=== PATIENT | male | born 1955 | race Caucasian/White ===

== ENCOUNTER 2017-02-12 13:29 | Emergency (ER) | payer SELFPAY ==
[~2017-02-12] VITALS: Ht 180.3 cm; Wt 86.2 kg
[2017-02-12 13:35] VITALS: BP 144/89
[2017-02-12] MEDS ORDERED: INVO100T PO (13:39)
[2017-02-12] MEDS ORDERED: ATOR1TAB18 (13:39)
[2017-02-12] MEDS ORDERED: METF1000 PO (13:39)
[2017-02-12] MEDS ORDERED: LIDOCAINE 2% 5ML JELLY UROJET TOP ONE (14:15)
[2017-02-12 14:31] LABS: BASO # 0.1 K/mm3 (0.0-0.2); BASO % 0.4 % (0.0-1.0); EOS % 0.2 % (0.0-3.0); LARGE UNSTAINED CELL # 0.2 K/mm3 (0.0-0.4); LARGE UNSTAINED CELL % 1.4 % (0.0-4.0); LYMPH # 1.3 K/mm3 (1.5-4.5); LYMPH % 8.2 % (24.0-44.0); MEAN CORPUSCULAR HGB CONC 35.8 g/dl (32.0-36.5); MEAN CORPUSCULAR VOLUME 86.5 fl (80.0-96.0); MONO % 6.3 % (0.0-5.0); NEUTROPHILS # 13.7 K/mm3 (1.8-7.7); NEUTROPHILS % 83.5 % (36.0-66.0); PLATELET COUNT, AUTOMATED 243 k/mm3 (150-450); RED CELL DISTRIBUTION WIDTH 12.3 % (11.5-14.5); WHITE BLOOD COUNT 16.4 K/mm3 (4.0-10.0)
[2017-02-12 14:48] LABS: CALCIUM LEVEL 9.5 MG/DL (8.8-10.2); CREATININE FOR GFR 1.58 MG/DL (0.70-1.30); GLOMERULAR FILTRATION RATE 47.4 (>49); POTASSIUM SERUM 3.2 MEQ/L (3.5-5.1)
[2017-02-12] MEDS ORDERED: FLOM5CAP PO (16:35)
[2017-02-13] MEDS ORDERED: CIPR500T89 PO (21:53)
--- NOTE | 2017-02-14 07:16 | ED PDOC ---
Post-Departure Follow-Up radiology rpeort faxed to Tawanda Cagle Sarah MD Feb 14, 2017 07:16
== END 2017-02-12 16:49 | disposition home or self-care (01) ==
LOC: M ED 14:24
DX: R33.9 Retention of urine, unspecified (principal); N40.1 Benign prostatic hyperplasia with lower urinary tract symptoms; I10 Essential (primary) hypertension; E11.9 Type 2 diabetes mellitus without complications; E78.9 Disorder of lipoprotein metabolism, unspecified; F17.210 Nicotine dependence, cigarettes, uncomplicated; Z79.899 Other long term (current) drug therapy; Z79.84 Long term (current) use of oral hypoglycemic drugs

== ENCOUNTER 2017-02-13 11:43 | Emergency (ER) | payer SELFPAY ==
[~2017-02-13] VITALS: Ht 180.3 cm; Wt 98.5 kg
[~2017-02-13 11:43] MED LIST: ATOR1TAB18; FLOM5CAP PO; INVO100T PO; METF1000 PO
[2017-02-13 12:53] VITALS: BP 127/78
[2017-02-13] MEDS ORDERED: CIPR500T89 PO (21:53)
== END 2017-02-13 13:05 | disposition home or self-care (01) ==
LOC: M ED 13:05
DX: T83.89XA Other specified complication of genitourinary prosthetic devices, implants and grafts, initial encounter (principal); R33.9 Retention of urine, unspecified; N40.0 Benign prostatic hyperplasia without lower urinary tract symptoms; X58.XXXA Exposure to other specified factors, initial encounter; Y92.89 Other specified places as the place of occurrence of the external cause; I10 Essential (primary) hypertension; E11.9 Type 2 diabetes mellitus without complications; E78.9 Disorder of lipoprotein metabolism, unspecified; F17.210 Nicotine dependence, cigarettes, uncomplicated; Z79.899 Other long term (current) drug therapy; Z79.2 Long term (current) use of antibiotics; Z79.84 Long term (current) use of oral hypoglycemic drugs

== ENCOUNTER 2017-02-13 18:37 | Emergency (ER) | payer SELFPAY ==
[~2017-02-13] VITALS: Ht 180.3 cm; Wt 98.4 kg
[2017-02-13 20:22] LABS: BASO # 0.1 K/mm3 (0.0-0.2); BASO % 0.5 % (0.0-1.0); EOS # 0.2 K/mm3 (0.0-0.50); EOS % 1.1 % (0.0-3.0); LARGE UNSTAINED CELL # 0.2 K/mm3 (0.0-0.4); LARGE UNSTAINED CELL % 1.2 % (0.0-4.0); LYMPH # 2.5 K/mm3 (1.5-4.5); LYMPH % 18.3 % (24.0-44.0); MEAN CORPUSCULAR HEMOGLOBIN 30.5 pg (27.0-33.0); MONO # 0.8 K/mm3 (0.0-0.8); MONO % 6.2 % (0.0-5.0); NEUTROPHILS # 9.3 K/mm3 (1.8-7.7); NEUTROPHILS % 72.6 % (36.0-66.0); PLATELET COUNT, AUTOMATED 222 k/mm3 (150-450); RED CELL DISTRIBUTION WIDTH 12.7 % (11.5-14.5); WHITE BLOOD COUNT 12.9 K/mm3 (4.0-10.0)
[2017-02-13 20:50] LABS: ALBUMIN 3.6 GM/DL (3.2-5.2); ALBUMIN/GLOBULIN RATIO 1.06 (1.00-1.93); BILIRUBIN,TOTAL 0.5 MG/DL (0.2-1.0); CALCIUM LEVEL 8.8 MG/DL (8.8-10.2); CREATININE FOR GFR 1.44 MG/DL (0.70-1.30); GLOMERULAR FILTRATION RATE 52.7 (>49); POTASSIUM SERUM 3.6 MEQ/L (3.5-5.1)
[2017-02-13] MEDS ORDERED: cefTRIAXone SOD 1 GM in D5W MINI-BAG PLUS 50 ML IV ONE (21:00)
[2017-02-13] MEDS ORDERED: NS 500 ML IV ONE (21:00)
[2017-02-13] MEDS ORDERED: ACETAMINOPHEN 325 MG TAB PO ONE (21:15)
--- NOTE | 2017-02-13 21:30 | REPUSA ---
CT of the abdomen and pelvis without contrast Clinical statement: hematuria. Technique: Multiple axial CT images were obtained from the base of the lungs to the floor of the pelv is utilizing 5 mm axial slices without administration of contrast. Coronal and sagittal reconstructio ns were also obtained. Comparison: None. Findings: Chest: The visualized lung bases are clear. Abdomen: The kidneys are normal in size bilaterally. There is a 2 cm simple right renal cyst. There i s no evidence of hydronephrosis or nephrolithiasis. The liver, spleen, pancreas, gallbladder and adre nal glands are unremarkable. The aorta demonstrates normal caliber and contour. There is no abdominal lymphadenopathy or ascites. Pelvis: The bowel is unremarkable, with no obstructive or inflammatory changes. The urinary bladder i s catheterized and contracted, with severe circumferential bladder wall thickening. No kidney stones are seen within the urinary bladder. The prostate gland is severely and large, measuring 6.8 x 6.9 c m. Bones: There are no suspicious osseous abnormalities seen. There is mild degenerative disc disease at L4/L5. Impression: 1. Circumferential bladder wall thickening within a catheterized and bonny urinary bladder. Cys toscopy may be helpful for further evaluation. 2. No evidence of hydronephrosis or nephrolithiasis. Simple right renal cyst. 3. No obstructive or inflammatory bowel changes. 4. Enlarged prostate. 5. Mild spondylosis of the spine.
[2017-02-13] MEDS ORDERED: CIPR500T89 PO (21:53)
[2017-02-13] MEDS ORDERED: CIPROFLOXACIN 500 MG TAB PO ONE (22:00)
[2017-02-13 22:04] VITALS: BP 139/80
== END 2017-02-13 22:40 | disposition home or self-care (01) ==
LOC: M ED 20:18
DX: N41.0 Acute prostatitis (principal); N39.0 Urinary tract infection, site not specified; R31.9 Hematuria, unspecified; R50.9 Fever, unspecified; N40.1 Benign prostatic hyperplasia with lower urinary tract symptoms; M51.36 Other intervertebral disc degeneration, lumbar region; E11.9 Type 2 diabetes mellitus without complications; E78.00 Pure hypercholesterolemia, unspecified; Z96.0 Presence of urogenital implants; Z90.49 Acquired absence of other specified parts of digestive tract; Z79.899 Other long term (current) drug therapy
CPT/HCPCS: 74176; 80053; 81001; 83605; 85025; 87040; 87086; 96361; 96374; 99284; J0696

== ENCOUNTER 2017-02-20 07:09 | Emergency (ER) | payer SELFPAY ==
[~2017-02-20] VITALS: Ht 180.3 cm; Wt 93.4 kg
[~2017-02-20 07:09] MED LIST changes: +CIPR500T89 PO
[2017-02-20 08:17] VITALS: BP 161/88
[2017-02-21] MEDS ORDERED: BACT800T5 PO (12:34)
[2017-02-21] MEDS ORDERED: DETR1TAB4 PO (12:34)
[2017-03-01] MEDS ORDERED: TRES1INJ2 SC (13:43)
== END 2017-02-20 08:18 | disposition home or self-care (01) ==
LOC: M ED 07:50
DX: T83.091A Other mechanical complication of indwelling urethral catheter, initial encounter (principal); Y84.6 Urinary catheterization as the cause of abnormal reaction of the patient, or of later complication, without mention of misadventure at the time of the procedure; N40.1 Benign prostatic hyperplasia with lower urinary tract symptoms; R31.0 Gross hematuria; X58.XXXA Exposure to other specified factors, initial encounter; Y92.89 Other specified places as the place of occurrence of the external cause; E11.9 Type 2 diabetes mellitus without complications; F17.210 Nicotine dependence, cigarettes, uncomplicated; Z79.899 Other long term (current) drug therapy; Z79.84 Long term (current) use of oral hypoglycemic drugs

== ENCOUNTER 2017-02-21 10:13 | Emergency (ER) | payer SELFPAY ==
[~2017-02-21] VITALS: Ht 180.3 cm; Wt 93.4 kg
[2017-02-21] MEDS ORDERED: TOLTERODINE (DETROL) 2 MG TAB PO ONE (11:15)
[2017-02-21 11:42] LABS: ANION GAP 10 MEQ/L (8-16); BLOOD UREA NITROGEN 17 MG/DL (7-18); CALCIUM LEVEL 8.8 MG/DL (8.8-10.2); CARBON DIOXIDE LEVEL 27 MEQ/L (21-32); CHLORIDE LEVEL 102 MEQ/L (98-107); CREATININE FOR GFR 1.12 MG/DL (0.70-1.30); GLOMERULAR FILTRATION RATE > 60.0 (>49); GLUCOSE, FASTING 115 MG/DL (80-110); POTASSIUM SERUM 3.7 MEQ/L (3.5-5.1); SODIUM LEVEL 139 MEQ/L (136-145)
[2017-02-21 11:43] LABS: BASO # 0.1 K/mm3 (0.0-0.2); BASO % 0.6 % (0.0-1.0); EOS # 0.1 K/mm3 (0.0-0.50); EOS % 0.9 % (0.0-3.0); LARGE UNSTAINED CELL # 0.1 K/mm3 (0.0-0.4); LARGE UNSTAINED CELL % 1.2 % (0.0-4.0); LYMPH # 1.8 K/mm3 (1.5-4.5); LYMPH % 15.6 % (24.0-44.0); MEAN CORPUSCULAR HEMOGLOBIN 30.6 pg (27.0-33.0); MEAN CORPUSCULAR HGB CONC 35.9 g/dl (32.0-36.5); MEAN CORPUSCULAR VOLUME 85.3 fl (80.0-96.0); MONO # 0.6 K/mm3 (0.0-0.8); MONO % 5.9 % (0.0-5.0); NEUTROPHILS % 75.8 % (36.0-66.0); PLATELET COUNT, AUTOMATED 295 k/mm3 (150-450); RED CELL DISTRIBUTION WIDTH 12.6 % (11.5-14.5); WHITE BLOOD COUNT 10.6 K/mm3 (4.0-10.0)
[2017-02-21 11:50] LABS: YEAST LIKE CELL URINE AUTO LARGE
[2017-02-21] MEDS ORDERED: BACT800T5 PO (12:34)
[2017-02-21] MEDS ORDERED: DETR1TAB4 PO (12:34)
[2017-02-21] MEDS ORDERED: BACTRIM 160MG/800MG DS TAB PO ONE (12:45)
[2017-02-21 12:52] VITALS: BP 129/78
[2017-02-22] MEDS ORDERED: OMEP40CA2 PO (01:40)
[2017-02-22] MEDS ORDERED: LOSA100T37 PO (01:40)
[2017-02-22] MEDS ORDERED: DETR1TAB4 PO (04:07)
[2017-02-22] MEDS ORDERED: BACT800T5 PO (04:07)
[2017-02-22] MEDS ORDERED: FLOM5CAP PO (04:07)
[2017-02-22] MEDS ORDERED: NICO14PA TD (09:00)
[2017-03-01] MEDS ORDERED: TRES1INJ2 SC (13:43)
== END 2017-02-21 12:54 | disposition home or self-care (01) ==
LOC: M ED 10:47
DX: N30.01 Acute cystitis with hematuria (principal); N40.1 Benign prostatic hyperplasia with lower urinary tract symptoms; R33.9 Retention of urine, unspecified; E11.9 Type 2 diabetes mellitus without complications; E78.00 Pure hypercholesterolemia, unspecified; F17.200 Nicotine dependence, unspecified, uncomplicated; Z90.49 Acquired absence of other specified parts of digestive tract; Z96.0 Presence of urogenital implants; Z79.899 Other long term (current) drug therapy

== ENCOUNTER 2017-02-22 01:27 | Observation (INO) | payer SELFPAY ==
[~2017-02-22] VITALS: Ht 180.3 cm; Wt 95.5 kg
[~2017-02-22 01:27] MED LIST changes: +BACT800T5 PO; +DETR1TAB4 PO
[2017-02-22] MEDS ORDERED: LOSA100T37 PO (01:40)
[2017-02-22] MEDS ORDERED: OMEP40CA2 PO (01:40)
[2017-02-22] MEDS: LORazepam 2 MG TAB PO STA ×2 (03:24→03:34)
[2017-02-22] MEDS ORDERED: LIDOCAINE 2% 5ML JELLY UROJET TOP ONE (04:00)
[2017-02-22] MEDS ORDERED: DETR1TAB4 PO (04:07)
[2017-02-22] MEDS ORDERED: FLOM5CAP PO (04:07)
[2017-02-22] MEDS ORDERED: BACT800T5 PO (04:07)
[2017-02-22 04:53] LABS: BASO # 0.1 K/mm3 (0.0-0.2); BASO % 0.6 % (0.0-1.0); EOS # 0.3 K/mm3 (0.0-0.50); EOS % 2.5 % (0.0-3.0); LARGE UNSTAINED CELL # 0.1 K/mm3 (0.0-0.4); LYMPH # 2.1 K/mm3 (1.5-4.5); LYMPH % 19.7 % (24.0-44.0); MEAN CORPUSCULAR HGB CONC 34.8 g/dl (32.0-36.5); MEAN CORPUSCULAR VOLUME 86.1 fl (80.0-96.0); MONO # 0.7 K/mm3 (0.0-0.8); MONO % 6.7 % (0.0-5.0); NEUTROPHILS # 7.1 K/mm3 (1.8-7.7); NEUTROPHILS % 69.5 % (36.0-66.0); PLATELET COUNT, AUTOMATED 294 k/mm3 (150-450); RED CELL DISTRIBUTION WIDTH 12.6 % (11.5-14.5); WHITE BLOOD COUNT 10.3 K/mm3 (4.0-10.0)
[2017-02-22 05:13] LABS: INR 0.95
[2017-02-22 05:15] LABS: ANION GAP 7 MEQ/L (8-16); BLOOD UREA NITROGEN 23 MG/DL (7-18); CALCIUM LEVEL 8.8 MG/DL (8.8-10.2); CARBON DIOXIDE LEVEL 30 MEQ/L (21-32); CHLORIDE LEVEL 102 MEQ/L (98-107); CREATININE FOR GFR 1.27 MG/DL (0.70-1.30); GLOMERULAR FILTRATION RATE > 60.0 (>49); GLUCOSE, FASTING 176 MG/DL (80-110); POTASSIUM SERUM 3.5 MEQ/L (3.5-5.1); SODIUM LEVEL 139 MEQ/L (136-145)
[2017-02-22] MEDS ORDERED: NS 1,000 ML IV SCH (05:59)
[2017-02-22] MEDS ORDERED: ACETAMINOPHEN TAB 650MG DOSE (2X325MG) PO PRN (06:00)
[2017-02-22] MEDS ORDERED: MORPHINE 2 MG/ML 1ML SYRINGE IV PRN (06:00)
[2017-02-22] MEDS ORDERED: HEPARIN SOD (PORCINE) 5000 UNITS/ML VIAL SC SCH (06:00)
--- NOTE | 2017-02-22 06:20 | HPEPDOC ---
General Date of Admission Feb 22, 2017 at 06:02 Other Providers Unknown Attending Physician: CALEB MORRISON MD Chief Complaint The patient is a 62-year-old male admitted with a reason for visit of Obstruction Of Urinary Outflow. Source: Patient Exam Limitations: No limitations Timing/Duration: Day(s) (10) Severity: Moderate Associated Symptoms: Denies Symptoms History of Present Illness Courtney a 62-year-old male, history of hypertension, diabetes, presented with acute evidence enough urine and his back. He came to the emergency room 10 days back and was placed a Coe catheter and that is scheduled urology appointment as an outpatient Since then. His Coe has clogged multiple times and that he has visited the emergency room, 7 times IN PAST 10 days Home Medications Scheduled (Losartan Potassium/Hydroc 100-25 mg) 1 Tab Tab, 1 TAB PO DAILY, (Reported) Canagliflozin (Invokana) 100 Mg Tab, 100 MG PO DAILY, (Reported) Metformin Hydrochloride (Metformin HCl) 1,000 Mg Tab, 1,000 MG PO BID, (Reported ) Omeprazole (Omeprazole) 40 Mg Cap, 40 MG PO DAILY, (Reported) Tamsulosin Hydrochloride (Flomax) 0.4 Mg Cap, 0.4 MG PO DAILY, (Reported) Tolterodine Tartrate (Detrol) 2 Mg Tab, 2 MG PO Q12H, (Reported) Trimethoprim/Sulfamethoxazole (Bactrim Ds 800-160 mg) 1 Tab Tab, 1 TAB PO Q12H, (Reported) Allergies Coded Allergies: No Known Allergies (Unverified , 02/13/17) Past Medical History Medical History Diabetes mellitus, hypertensive Surgical History Laparotomy for foreign body Family History Significant Family History: No pertinent family hx Social History * Smoker: less than 1 pack/day Alcohol: Denies Drugs: denies Recent Travel/Sick Contacts: Denies: Recent travel, Recent sick contacts Review of Symptoms Constitutional: Denies: Chills, Fever, Night Sweats Eyes: Denies: Pain, Vision change ENT: Denies: Head Aches, Ear Pain, Dysphagia Skin: Denies: Rash, Lesions, Breakdown Pulmonary: Denies: Dyspnea, Cough Cardiovascular: Denies: Chest Pain, Palpitations, Orthopnea, Paroxysmal Noc. Dyspnea, Lt Headedness Gastrointestinal: Denies: Nausea, Vomiting, Abdominal Pain, Diarrhea Genitourinary: Reports: Dysuria, Retention, Denies: Frequency, Incontinence Hematologic: Denies: Bruising, Bleeding Excessively Musculoskeletal: Denies: Neck Pain, Back Pain, Joint Pain, Muscle Pain, Spasms Neurological: Denies: Weakness, Numbness, Change in speech, Confusion Psych: Reports: Mood Normal, Denies: Depression, Memory Issues Physical Examination General Exam: Positive: Alert, Moderate Distress Eye Exam: Positive: PERRLA, Conjunctiva & lids normal, EOMI, Negative: Sclera icteric ENT Exam: Positive: Atraumatic, Mucous membr. moist/pink, Pharynx Normal Neck Exam: Positive: Supple, Negative: JVD, thyromegaly Chest Exam: Positive: Clear to auscultation, Normal air movement Heart Exam: Positive: Rate Normal, Regular Rhythm, Normal S1, Normal S2, Negative: Murmurs, Rubs Telemetry: Positive: No significant arrhythmia Abdomen Exam: Positive: Normal bowel sounds, Soft, Negative: Tenderness, Hepatospenomegaly Extremity Exam: Positive: Normal pulses, Negative: Clubbing, Cyanosis, Edema Skin Exam: Positive: Nl turgor and temperature, Negative: Breakdown, Lesion Neuro Exam: Positive: Normal Gait, Normal Speech, Cranial Nerves 3-12 NL, Reflexes 2+ Psych Exam: Positive: Mental status NL, Mood NL, Oriented x 3 Other physical findings Coe catheter in place Vital Signs Vital Signs Date Time Temp Pulse Resp B/P (MAP) Pulse Ox O2 Delivery O2 Flow Rate FiO2 02/22/17 04:34 02/22/17 01:34 98.1 106 20 97 Room Air Laboratory Data Labs 24H Laboratory Tests 2 02/22/17 04:46: White Blood Count 10.3H, Red Blood Count 5.15, Hemoglobin 15.5, Hematocrit 44.3 , Mean Corpuscular Volume 86.1, Mean Corpuscular Hemoglobin 30.0, Mean Corpuscular Hemoglobin Concent 34.8, Red Cell Distribution Width 12.6, Platelet Count 294, Neutrophils (%) (Auto) 69.5H, Lymphocytes (%) (Auto) 19.7L, Monocytes (%) (Auto) 6.7H, Eosinophils (%) (Auto) 2.5, Basophils (%) (Auto) 0.6 , Neutrophils # (Auto) 7.1, Lymphocytes # (Auto) 2.1, Monocytes # (Auto) 0.7, Eosinophils # (Auto) 0.3, Basophils # (Auto) 0.1, Large Unclassified Cells % 1.0 , Large Unclassified Cells # 0.1, Prothrombin Time 12.8, Prothromb Time International Ratio 0.95, Activated Partial Thromboplast Time 32.6, Anion Gap 7L , Glomerular Filtration Rate > 60.0, Blood Urea Nitrogen 23H, Creatinine 1.27, Sodium Level 139, Potassium Level 3.5, Chloride Level 102, Carbon Dioxide Level 30, Calcium Level 8.8 CBC/BMP Laboratory Tests 02/22/17 04:46 Red Blood Count 5.15, Mean Corpuscular Volume 86.1, Mean Corpuscular Hemoglobin 30.0, Mean Corpuscular Hemoglobin Concent 34.8, Red Cell Distribution Width 12.6 , Neutrophils (%) (Auto) 69.5 H, Lymphocytes (%) (Auto) 19.7 L, Monocytes (%) ( Auto) 6.7 H, Eosinophils (%) (Auto) 2.5, Basophils (%) (Auto) 0.6, Neutrophils # (Auto) 7.1, Lymphocytes # (Auto) 2.1, Monocytes # (Auto) 0.7, Eosinophils # ( Auto) 0.3, Basophils # (Auto) 0.1, Calcium Level 8.8 Assessment/Plan 62-year-old old man, history of hypertension, diabetes, presented with urinary attendance and was placed. Coe. Coe and gets clogged multiple times Problems (1) Obstruction to urinary outflow Status: Acute Problem Text: We will get a urology consult. Continue Flomax. IV normal saline. Continue Coe catheter almost likely present, will go for urological interventions. Keep him nothing by mouth (2) Tobacco abuse Problem Text: Continue with nicotine patch (3) Diabetes mellitus type 2 in nonobese Problem Text: Continue with Levemir and sliding scale insulin Plan / VTE VTE Prophylaxis Ordered?: Yes Plan / Urinary Catheter Urinary Catheter: Place Coe Plan IVF: Initiate Diet: Make NPO Diagnostics: Repeat Labs in AM Anticipated Discharge: Home RICO SALOMON MD Feb 22, 2017 06:20
[2017-02-22 06:28] VITALS: BP 131/77
[2017-02-22] MEDS ORDERED: HumaLOG INSULIN (NovoLOG) PER UNIT SC SCH (07:30)
--- NOTE | 2017-02-22 08:30 | IPNPDOC ---
Text Note Date of Service The patient was seen on 02/22/17. NOTE Subjective: Patient was seen and examined at bedside today. Denies fevers, chills, chest pain, SOB, nausea, vomiting, headache, diarrhea, constipation. Admits to urinary retention and hicks catheter being obstructed with blood clots. Daughter states that regular catheter placed on 02/12/17, but always got clogged, and had to come back around 6 times as patient had developed urinary obstruction for this. Denies pain at urethral site. Admits to hematuria. Objective: Vitals: T:99 BP: 131/77 RR: 17 P: 95 O2 Saturation: 96% room air General: Awake, alert, oriented 3. Pleasant elderly male lying comfortably in bed in no acute distress. HEENT: Head: normocephalic, atraumatic. Eyes: sclera are nonicteric. Nose: No external lesions Neck: Supple. Respiratory: clear to auscultation bilaterally with no wheezes, rales, or rhonchi. Chest: Symmetric chest rise bilaterally. Cardiovascular: regular rate and rhythm, with no murmurs, rubs or gallops. Abdomen: soft, nontender, nondistended, no hepatosplenomegaly appreciated. Bowel sounds present. Extremities: No lower extremity edema appreciated. Neurological: No focal neurologic deficits appreciated bilaterally. Integumentary: skin free from rashes, lesions, abrasions Vascular: +2 dorsalis pedis and radial pulses bilaterally. Genitourinary: triple lumen hicks catheter in place draining scaha clear urine: ~600 cc's seen in hicks bag. Laboratory data: Please see below. WBC mildly elevated at 10.3. Microbiology: Not performed during this visit. Imaging: CT Scan of Abd/Pelvis Without Contrast on 02/13/17: Impression: 1. Circumferential bladder wall thickening within a catheterized and bonny urinary bladder. Cystoscopy may be helpful for further evaluation. 2. No evidence of hydronephrosis or nephrolithiasis. Simple right renal cyst. 3. No obstructive or inflammatory bowel changes. 4. Enlarged prostate. 5. Mild spondylosis of the spine. Assessment: This is a 62 yo M with a PMH of HTN, DM, BPH, who presented to [facility] ED for urinary retention, hematuria, and clogging of his hicks catheter. Plan: Obstruction to Urinary Flow/Urinary Incontinence: Continue flomax. CBI was begun and a 3-way hicks was inserted. Patient was made NPO, but will now be placed back on a carbohydrate consistent diet. Dr. Emmanuel spoke to Dr. Velásquez of Urology this morning for a possible consult or admission to their service for urinary incontinence, and Dr. Velásquez will be happy to see the patient in the office as an outpatient today. Him and his office team will manage the patient as an outpatient. CBI will be discontinued, the hicks catheter will be clamped, and patient will be seen in Dr. Velásquez's office today. A CT scan of the abdomen/pelvis done on 02/13/17 showed an enlarged prostate, circumferential bladder wall thickening within a catheterized and bonny urinary bladder. It was suggested that a cystoscopy may be helpful for further evaluation. There was no hydronephrosis or nephrolithiasis seen on the scan. There was mild spondylosis of the spine also noted. Recommended that patient follow up for urological interventions such as cystoscopy as outpatient. Patient is to continue his home meds: tolterodine, flomax, and bactrim. Patient will be discharged to home today and was admitted under observation status. Tobacco Abuse Disorder: Counseled patient on smoking cessation and patient complied with trying nicotine patch. Have prescribed at discharge. DM II in Nonobese: Continue metformin and invokana. HTN: continue losartan. My preceptor for this patient encounter was Dr. Deirdre Emmanuel, and was physically present in the building during the encounter and was fully available. As needed , all aspects of the patient interview, examination, medical decision making process, and medical care plan development were reviewed and approved by the preceptor. Preceptor is aware and concurs with the plan as stated in the body of this note and will attest to such by his/her cosignature. VS,Fishbone, I+O VS, Fishbone, I+O Laboratory Tests 02/22/17 04:46 Red Blood Count 5.15, Mean Corpuscular Volume 86.1, Mean Corpuscular Hemoglobin 30.0, Mean Corpuscular Hemoglobin Concent 34.8, Red Cell Distribution Width 12.6 , Neutrophils (%) (Auto) 69.5 H, Lymphocytes (%) (Auto) 19.7 L, Monocytes (%) ( Auto) 6.7 H, Eosinophils (%) (Auto) 2.5, Basophils (%) (Auto) 0.6, Neutrophils # (Auto) 7.1, Lymphocytes # (Auto) 2.1, Monocytes # (Auto) 0.7, Eosinophils # ( Auto) 0.3, Basophils # (Auto) 0.1, Calcium Level 8.8 Vital Signs Date Time Temp Pulse Resp B/P (MAP) Pulse Ox O2 Delivery O2 Flow Rate FiO2 02/22/17 06:28 99.0 95 17 131/77 (95) 96 Room Air MUMTAZ FINE OGNE-1 Feb 22, 2017 08:30
[2017-02-22] MEDS ORDERED: LEVEMIR (INSULIN DETEMIR) 1 UNITS/0.01ML SC SCH (09:00)
[2017-02-22] MEDS ORDERED: TAMSULOSIN 0.4 MG CAP PO SCH (09:00)
[2017-02-22] MEDS ORDERED: TOLTERODINE (DETROL) 2 MG TAB PO SCH (09:00)
[2017-02-22] MEDS ORDERED: OMEPRAZOLE 20 MG CAP PO SCH (09:00)
[2017-02-22] MEDS ORDERED: NICOTINE 14 MG/24 HR TRANSDERMAL TD SCH (09:00)
[2017-02-22] MEDS ORDERED: NICO14PA TD (09:00)
[2017-03-01] MEDS ORDERED: TRES1INJ2 SC (13:43)
== END 2017-02-22 10:57 | disposition home or self-care (01) ==
LOC: M ED 02:40 → M ED INP 06:02 → INTOOBSV 06:02 → M MSPAV 06:28
PROVIDERS: ADMIT Internal Medicine; ATTEND Internal Medicine Nephrology
DX: N13.9 Obstructive and reflux uropathy, unspecified (principal); E11.9 Type 2 diabetes mellitus without complications; N40.0 Benign prostatic hyperplasia without lower urinary tract symptoms; R31.9 Hematuria, unspecified; M47.9 Spondylosis, unspecified; Z96.0 Presence of urogenital implants; F17.200 Nicotine dependence, unspecified, uncomplicated; Z79.899 Other long term (current) drug therapy; Z79.84 Long term (current) use of oral hypoglycemic drugs; Z79.2 Long term (current) use of antibiotics

== ENCOUNTER → 2017-02-23 | Outpatient (CLI) | payer SELFPAY ==
[~2017-02-23] MED LIST changes: +LOSA100T37 PO; +NICO14PA TD; +OMEP40CA2 PO; +TRES1INJ2 SC
--- NOTE | 2017-02-24 02:42 | REP ---
Clinical: Preoperative assessment . Comparison: None . Technique: PA and lateral. Findings: The mediastinum and cardiac silhouette are normal. The lung thrasher are clear and without acute consolidation, effusion, or pneumothorax. The skeletal structures are intact and normal. Impression: 1. No acute cardiopulmonary process. Signed by Paul Huitron MD 02/24/2017 02:33 A
== END ==
LOC: M SMT 14:25
PROVIDERS: ATTEND Urology
DX: Z01.818 Encounter for other preprocedural examination (principal); N40.1 Benign prostatic hyperplasia with lower urinary tract symptoms

== ENCOUNTER 2017-02-28 19:19 | Emergency (ER) | payer OTHER, SELFPAY ==
[~2017-02-28] VITALS: Ht 180.3 cm; Wt 94.6 kg
[~2017-02-28 19:19] MED LIST changes: -ATOR1TAB18; +ATOR80TA59; +CIPR-249 PO; -CIPR500T89 PO; -LOSA100T37 PO; +LOSA100T5 PO; -METF1000 PO; +METF10004 PO; -TRES1INJ2 SC
[2017-02-28 22:42] VITALS: BP 137/84
[2017-03-01] MEDS ORDERED: TRES1INJ2 SC (13:43)
== END 2017-02-28 22:45 | disposition home or self-care (01) ==
LOC: M ED 21:16
DX: N40.1 Benign prostatic hyperplasia with lower urinary tract symptoms (principal); T83.028A Displacement of other urinary catheter, initial encounter; X58.XXXA Exposure to other specified factors, initial encounter; Y92.9 Unspecified place or not applicable; Y93.9 Activity, unspecified; Y99.8 Other external cause status; E11.9 Type 2 diabetes mellitus without complications; I10 Essential (primary) hypertension; E78.00 Pure hypercholesterolemia, unspecified; G43.909 Migraine, unspecified, not intractable, without status migrainosus; F17.200 Nicotine dependence, unspecified, uncomplicated; Z90.49 Acquired absence of other specified parts of digestive tract

== ENCOUNTER → 2017-03-05 | Day surgery (SDC) | payer SELFPAY ==
[~2017-03-05] VITALS: Ht 180.3 cm; Wt 95.3 kg
[~2017-03-05] MED LIST changes: +ACETAMINOPHEN TAB 650MG DOSE (2X325MG) PO PRN; +ATOR1TAB18; -ATOR80TA59; -CIPR-249 PO; +CIPR500T89 PO; +FUROSEMIDE 100 MG/10 ML VIAL (J1940) As Ordered ONE; +HYDROmorphone HCL 1 MG/ML SYRINGE (J1170) IV PRN; +LIDOCAINE 2% INJ 100 MG/5 ML SDV (FOR ANES.) As Ordered ONE; +LOSA100T37 PO; -LOSA100T5 PO; +LR 1,000 ML IV SCH; +METF1000 PO; -METF10004 PO; +MIDAZOLAM INJ 2 MG/2 ML VIAL (J2250) As Ordered ONE; +ONDANSETRON 4MG/2ML VIAL (J2405) As Ordered ONE; +ONDANSETRON 4MG/2ML VIAL (J2405) IV PRN; +PERCOCET 5MG/325MG TAB PO PRN; +PHENYLephrine HCL 500 MCG/5 ML (100MCG/ML) SYRINGE (J2370) As Ordered ONE; +PROPOFOL 200 MG/20 ML VIAL As Ordered ONE; +ROCURONIUM BROMIDE 50 MG/5 ML VIAL As Ordered ONE; +SUGAMMADEX SODIUM 500 MG/5 ML VIAL (BRIDION) As Ordered ONE; +TRES1INJ2 SC; +fentaNYL 100 MCG/2 ML INJECTION (J3010) As Ordered ONE; +fentaNYL 100 MCG/2 ML INJECTION (J3010) IV PRN
[2017-03-05 13:30] VITALS: BP 139/72
--- NOTE | 2017-03-06 08:16 | RO ---
DATE OF PROCEDURE: 03/05/2017 PREPROCEDURE DIAGNOSIS: Benign prostatic hyperplasia with urinary retention. POSTPROCEDURE DIAGNOSIS: Benign prostatic hyperplasia with urinary retention. PROCEDURES PERFORMED: Cystoscopy, button transurethral electrovaporization of the prostate. SURGEON: Dr. Julius Velásquez SENIOR COLDFUSION DEVELOPER: None. ANESTHESIA: General. OPERATIVE INDICATIONS: This is a 62-year-old male with benign prostatic hyperplasia with urinary retention, which has not been responsive to medical therapy. He elected to undergo the above-listed procedure for treatment. DESCRIPTION OF PROCEDURE: The patient was brought to the operating room where general anesthesia was induced. Prophylactic antibiotics were infused. He was then placed in the dorsal lithotomy position and prepped and draped in the usual sterile fashion. At this point, a button resectoscope was inserted into the urethral meatus and advanced into the bladder using the visual obturator. Once within the bladder, the patient was thoroughly examined, and bilateral ureteral orifices were identified. They were not very close to the bladder neck. I also made note of the location of verumontanum. At this point, I began vaporizing hyperplastic tissue on the median lobe and then circumferentially at the bladder neck. After that, I began vaporizing hyperplastic tissue in both lateral lobes. I kept doing this until there was a clear channel established into the bladder. Throughout the procedure, I made sure not to vaporize too close to the ureteral orifices or distal to the verumontanum. Once there was a clear channel established, hemostasis was obtained using the coagulation current. Once hemostasis was excellent, the button resectoscope was removed, and an 18-Latvian Coe catheter was inserted into the bladder. The balloon was then filled with 15 mL of sterile water, and this marked the conclusion of the procedure. The catheter was then connected to gravity drainage. The patient was then taken out of the dorsal lithotomy position, awakened from anesthesia, and transported to the recovery room in stable condition. ESTIMATED BLOOD LOSS: 25 mL. COMPLICATIONS: None. SPECIMENS: None. PLAN: The patient will be discharged home with the catheter in place. He will followup in the clinic in about 1 week for a voiding trial. [place]
== END ==
LOC: M SDC 05:59
PROVIDERS: ATTEND Urology
DX: N40.1 Benign prostatic hyperplasia with lower urinary tract symptoms (principal); R33.8 Other retention of urine; R31.0 Gross hematuria; I10 Essential (primary) hypertension; E11.40 Type 2 diabetes mellitus with diabetic neuropathy, unspecified; E23.0 Hypopituitarism; E78.5 Hyperlipidemia, unspecified; M54.9 Dorsalgia, unspecified; G89.29 Other chronic pain; K21.9 Gastro-esophageal reflux disease without esophagitis; N52.9 Male erectile dysfunction, unspecified; R06.83 Snoring; F17.210 Nicotine dependence, cigarettes, uncomplicated; Z79.899 Other long term (current) drug therapy; Z79.2 Long term (current) use of antibiotics; Z79.84 Long term (current) use of oral hypoglycemic drugs; Z79.4 Long term (current) use of insulin; Z91.040 Latex allergy status
CPT/HCPCS: 36415; 52601; 86850; 86900; 86901; J0690; J1940; J2250; J2370; J2405; J3010

== ENCOUNTER → 2017-05-05 | Outpatient (CLI) | payer MEDICARE ==
[~2017-05-05] MED LIST changes: -ACETAMINOPHEN TAB 650MG DOSE (2X325MG) PO PRN; -ATOR1TAB18; +ATOR80TA59; +CIPR-249 PO; -CIPR500T89 PO; -FUROSEMIDE 100 MG/10 ML VIAL (J1940) As Ordered ONE; -HYDROmorphone HCL 1 MG/ML SYRINGE (J1170) IV PRN; -LIDOCAINE 2% INJ 100 MG/5 ML SDV (FOR ANES.) As Ordered ONE; -LOSA100T37 PO; +LOSA100T5 PO; -LR 1,000 ML IV SCH; -METF1000 PO; +METF10004 PO; -MIDAZOLAM INJ 2 MG/2 ML VIAL (J2250) As Ordered ONE; -ONDANSETRON 4MG/2ML VIAL (J2405) As Ordered ONE; -ONDANSETRON 4MG/2ML VIAL (J2405) IV PRN; -PERCOCET 5MG/325MG TAB PO PRN; -PHENYLephrine HCL 500 MCG/5 ML (100MCG/ML) SYRINGE (J2370) As Ordered ONE; -PROPOFOL 200 MG/20 ML VIAL As Ordered ONE; -ROCURONIUM BROMIDE 50 MG/5 ML VIAL As Ordered ONE; -SUGAMMADEX SODIUM 500 MG/5 ML VIAL (BRIDION) As Ordered ONE; -fentaNYL 100 MCG/2 ML INJECTION (J3010) As Ordered ONE; -fentaNYL 100 MCG/2 ML INJECTION (J3010) IV PRN
== END ==
LOC: M OUTALCOH 08:00
PROVIDERS: ATTEND Psychiatry & Neurology Psychiatry
DX: Z03.89 Encounter for observation for other suspected diseases and conditions ruled out (principal)

== ENCOUNTER → 2017-11-26 | Outpatient (CLI) | payer MEDICARE, SELFPAY | LOC: M ADAMS 11:28 | DX: S20.222A Contusion of left back wall of thorax, initial encounter (principal); Y92.89 Other specified places as the place of occurrence of the external cause; Y93.89 Activity, other specified; X58.XXXA Exposure to other specified factors, initial encounter; Y99.8 Other external cause status | CPT/HCPCS: 71101 ==

== ENCOUNTER 2018-04-03 14:14 | Emergency (ER) | payer SELFPAY, MEDICARE ==
[2018-04-03 17:12] LABS: BASO # 0.1 10^3/uL (0.0-0.2); BASO % 0.3 % (0.0-1.0); EOS # 0.2 10^3/uL (0.0-0.50); EOS % 1.3 % (0.0-3.0); HEMATOCRIT 45.4 % (42.0-52.0); HEMOGLOBIN 15.8 g/dl (13.5-17.5); IMMATURE GRANULOCYTE % 0.4 % (0-3.0); LYMPH # 2.2 10^3/uL (1.5-4.5); LYMPH % 14.5 % (24.0-44.0); MEAN CORPUSCULAR HEMOGLOBIN 30.2 pg (27.0-33.0); MEAN CORPUSCULAR HGB CONC 34.8 g/dl (32.0-36.5); MEAN CORPUSCULAR VOLUME 86.6 fl (80.0-96.0); MONO % 6.7 % (0.0-5.0); NEUTROPHILS # 11.6 10^3/uL (1.8-7.7); NEUTROPHILS % 76.8 % (36.0-66.0); PLATELET COUNT, AUTOMATED 240 10^3/uL (150-450); RED BLOOD COUNT 5.24 10^6/uL (4.30-6.10); RED CELL DISTRIBUTION WIDTH 12.8 % (11.5-14.5); WHITE BLOOD COUNT 15.1 10^3/uL (4.0-10.0)
[2018-04-03 17:32] LABS: ERYTHROCYTE SEDIMENTATION RATE 18 mm/hr (0-20)
[2018-04-03 17:33] LABS: ANION GAP 7 MEQ/L (8-16); BLOOD UREA NITROGEN 22 MG/DL (7-18); C REACTIVE PROTEIN QUANTITATIV 1.17 MG/DL (0.00-0.30); CALCIUM LEVEL 8.7 MG/DL (8.8-10.2); CARBON DIOXIDE LEVEL 28 MEQ/L (21-32); CHLORIDE LEVEL 102 MEQ/L (98-107); GLOMERULAR FILTRATION RATE > 60.0 (>49); GLUCOSE, FASTING 292 MG/DL (70-100); POTASSIUM SERUM 3.4 MEQ/L (3.5-5.1); SODIUM LEVEL 137 MEQ/L (136-145)
[2018-04-03] MEDS: CEPHALEXIN 500 MG CAP PO (19:15)
== END 2018-04-03 19:28 | disposition home or self-care (01) ==
LOC: M ED 14:14
DX: L03.116 Cellulitis of left lower limb (principal); E11.9 Type 2 diabetes mellitus without complications; G62.9 Polyneuropathy, unspecified; K21.9 Gastro-esophageal reflux disease without esophagitis; G43.909 Migraine, unspecified, not intractable, without status migrainosus; Z79.899 Other long term (current) drug therapy; Z79.82 Long term (current) use of aspirin; Z79.4 Long term (current) use of insulin; Z91.040 Latex allergy status; F17.210 Nicotine dependence, cigarettes, uncomplicated
CPT/HCPCS: 73630

== ENCOUNTER 2018-04-06 07:49 | Emergency (ER) | payer SELFPAY ==
[2018-04-06] MEDS ORDERED: LIDOCAINE 1% MDV 20ML VIAL As Ordered (08:18)
[2018-04-06] MEDS: cefTRIAXone SOD 1 GM VIAL (J0696) IM (08:21)
== END 2018-04-06 08:51 | disposition home or self-care (01) ==
LOC: M ED 07:49
DX: L03.116 Cellulitis of left lower limb (principal); E11.9 Type 2 diabetes mellitus without complications; I10 Essential (primary) hypertension; E78.5 Hyperlipidemia, unspecified; K21.9 Gastro-esophageal reflux disease without esophagitis; G62.9 Polyneuropathy, unspecified; Z79.899 Other long term (current) drug therapy; Z79.82 Long term (current) use of aspirin; Z79.84 Long term (current) use of oral hypoglycemic drugs; F17.210 Nicotine dependence, cigarettes, uncomplicated
CPT/HCPCS: J0696

== ENCOUNTER → 2019-02-22 | Outpatient (REF) | payer OTHER ==
[~2019-02-22] MED LIST changes: +ASPI81TA85 PO; +ATOR80TA59 PO; -DETR1TAB4 PO; +DETR1TAB5 PO; +FLOM0.4C39 PO; -FLOM5CAP PO; +HYDR-3719 PO; +KEFL500C17 PO
== END ==
LOC: M SMT 13:11
PROVIDERS: ATTEND Urology
DX: R31.0 Gross hematuria (principal)

== ENCOUNTER → 2019-02-23 | Outpatient (CLI) | payer OTHER ==
[2019-02-23 17:37] LABS: BLOOD UREA NITROGEN 10 MG/DL (7-18); CALCIUM LEVEL 9.2 MG/DL (8.8-10.2); CARBON DIOXIDE LEVEL 30 MEQ/L (21-32); CHLORIDE LEVEL 98 MEQ/L (98-107); CREATININE FOR GFR 1.14 MG/DL (0.70-1.30); GLOMERULAR FILTRATION RATE > 60.0 (>49); GLUCOSE, FASTING 172 MG/DL (70-100); POTASSIUM SERUM 3.9 MEQ/L (3.5-5.1); SODIUM LEVEL 136 MEQ/L (136-145)
== END ==
LOC: M SMT 15:05
PROVIDERS: ATTEND Psychiatry & Neurology Addiction Medicine
DX: R31.0 Gross hematuria (principal)

== ENCOUNTER → 2019-02-28 | Outpatient (CLI) | payer OTHER ==
[~2019-02-28] MED LIST changes: +ISOVUE-370 76% 100ML VIAL (Q9967) As Ordered ONE
--- NOTE | 2019-03-01 08:21 | REP ---
CT abdomen pelvis without and with IV contrast, multiphase imaging. There is no bowel contrast. After IV contrast imaging is performed during the portal venous phase of enhancement and repeated during the delayed equilibrium phase of enhancement. Comparison is the study without IV contrast dated 02/13/2017. There are no renal calculi. There are no ureteral calculi. There are no bladder calculi. There is no hydronephrosis. There are no renal masses. There are no focal bladder masses. The bladder is incompletely distended. There is circumferential mild bladder wall thickening, possibly secondary to incomplete distension. No focal bladder masses identified. The prostate is diffusely enlarged and effaces the bladder base . This is unchanged. There are multiple bilateral renal simple cysts. Largest on the right is a parapelvic cyst measuring up to 3.4 cm. The largest on the left is a cortical cyst measuring up to 2.1 cm. There is no perinephric stranding. The adrenals are unremarkable. The visualized lung thrasher are unremarkable. The hepatic parenchyma is homogeneous on all phases of the study. The gallbladder, pancreas and spleen are normal size unremarkable. The abdominal aorta is unremarkable. There is no periaortic adenopathy or mass. The bowel and mesentery are unremarkable except for diverticulosis without diverticulitis in the descending colon and sigmoid colon. Pelvis: There is no adenopathy or ascites. Prostate is diffusely enlarged as discussed previously. There is no ascites. Pelvic bowel loops are unremarkable except for sigmoid colon diverticulosis without diverticulitis. Impression: There are multiple renal simple cysts bilaterally. There are no renal calculi. There are no renal masses. There is no hydronephrosis. There are no ureteral or bladder calculi. Mild circumferential symmetric wall thickening of the bladder may be secondary to incomplete distension. No focal bladder mass is identified. The prostate is enlarged and effaces the bladder base. This is unchanged. Diverticulosis without diverticulitis. The There is multilevel degenerative disc disease and facet osteoarthritis throughout the lumbar spine. There are stable exostoses of the right iliac wing anteriorly and posteriorly, unchanged. There are stable small bone islands in the right femoral head, the left femur intertrochanteric zone and the left acetabular roof, unchanged. Electronically Signed by Jose Maria Chilel MD 03/01/2019 08:13 A
== END ==
LOC: M RAD 16:40
PROVIDERS: ATTEND Urology
DX: R31.0 Gross hematuria (principal); N28.1 Cyst of kidney, acquired; N40.1 Benign prostatic hyperplasia with lower urinary tract symptoms; K57.90 Diverticulosis of intestine, part unspecified, without perforation or abscess without bleeding
CPT/HCPCS: 74178; Q9967

== ENCOUNTER → 2019-04-13 | Outpatient (REF) | payer OTHER ==
[~2019-04-13] MED LIST changes: -ISOVUE-370 76% 100ML VIAL (Q9967) As Ordered ONE
== END ==
LOC: M SMT 13:01
PROVIDERS: ATTEND Urology
DX: N39.0 Urinary tract infection, site not specified (principal)

== ENCOUNTER → 2019-04-26 | Outpatient (CLI) | payer OTHER | LOC: M LAB 10:19 | PROVIDERS: ATTEND Urology | DX: Z12.5 Encounter for screening for malignant neoplasm of prostate (principal) | CPT/HCPCS: 36415; G0103 ==

== ENCOUNTER → 2019-05-16 | Outpatient (CLI) | payer OTHER ==
--- NOTE | 2019-05-16 11:50 | REP ---
TRANSRECTAL ULTRASOUND PROSTATE WITH ULTRASOUND GUIDANCE FOR PROSTATE BIOPSY: Transrectal ultrasound of the prostate is performed. Prostate measures 7.0 x 6.1 x 5.2 cm for a total volume of 117 mL. Hypoechoic nodule in the left mid prostate measures 1 cm in diameter. Echotexture is heterogeneous with scattered cysts and calcifications. Seminal vesicles are symmetrical. Ultrasound guidance was provided for Dr. Velásquez who performed ultrasound-guided biopsy of the prostate. Electronically Signed by Jose Maria Lezama MD 05/16/2019 04:49 P
== END ==
LOC: M SMT PRO 08:42
PROVIDERS: ATTEND Urology
DX: R97.20 Elevated prostate specific antigen [PSA] (principal)
CPT/HCPCS: 55700; 76872; 76942; G0416

== ENCOUNTER → 2020-01-23 | Outpatient (REF) | payer OTHER ==
[~2020-01-23] MED LIST changes: -OMEP40CA2 PO; +OMEP40CA97 PO
[2020-01-26 14:07] LABS: PSA % FREE 30.4 % (.); PSA FREE 1.73 ng/mL; PSA TOTAL 5.7 ng/mL (0.0-4.0)
== END ==
LOC: M SFHCADAM 13:56
PROVIDERS: ATTEND Urology
DX: R97.20 Elevated prostate specific antigen [PSA] (principal)

== ENCOUNTER → 2022-04-07 | Outpatient (CLI) | payer OTHER ==
[~2022-04-07] MED LIST changes: -ASPI81TA85 PO; +ASPI81TA86 PO; +OMEP40CA4 PO; -OMEP40CA97 PO
== END ==
LOC: M RAD 07:47
PROVIDERS: ATTEND Family Medicine
DX: F17.210 Nicotine dependence, cigarettes, uncomplicated (principal)

== ENCOUNTER 2023-07-20 16:27 | Emergency (ER) | payer MEDICARE, OTHER ==
[~2023-07-20] VITALS: Ht 180.3 cm; Wt 97.6 kg
[2023-07-20 16:39] VITALS: TEMP 97.8
[2023-07-20] MEDS ORDERED: VALA1TAB5 PO (16:50)
[2023-07-20] MEDS ORDERED: TAMS1CAP17 PO (16:50)
[2023-07-20] MEDS ORDERED: FINA5TAB2 PO (16:50)
[2023-07-20 18:16] VITALS: BP 161/75
[2023-07-20 18:30] VITALS: O2SAT 97
== END 2023-07-20 18:44 | disposition left against medical advice (07) ==
LOC: EDBD 16:27 → M ED 16:27
DX: Z53.21 Procedure and treatment not carried out due to patient leaving prior to being seen by health care provider (principal)

== ENCOUNTER → 2024-07-03 | Outpatient (CLI) | payer MEDICARE ==
[~2024-07-03] MED LIST changes: +FINA5TAB2 PO; +TAMS1CAP17 PO; +VALA1TAB5 PO
== END ==
LOC: M RAD 15:23
PROVIDERS: ATTEND Family Medicine
DX: Z87.891 Personal history of nicotine dependence (principal)

== ENCOUNTER 2024-11-27 06:54 | Day surgery (SDC) | payer MEDICARE ==
[~2024-11-27] VITALS: Ht 180.3 cm; Wt 97.7 kg
[2024-11-27] MEDS ORDERED: LR 1,000 ML IV SCH (07:00)
[2024-11-27] MEDS: CYCLOPENTOLATE 1% OPHTH SOLN 2ML BTL OD SCH (07:44)
[2024-11-27] MEDS: TETRACAINE 0.5% OPHTH SOLN 4ML OD SCH (07:44)
[2024-11-27] MEDS: FLURBIPROFEN 0.03% OPHTH SOLN 2.5 ML OD SCH (07:45)
[2024-11-27] MEDS: PHENYLEPHRINE 2.5% OPHTH SOL 2ML OD SCH (07:45)
[2024-11-27] MEDS ORDERED: fentaNYL 100 MCG/2 ML INJECTION As Ordered ONE (07:56)
[2024-11-27] MEDS ORDERED: MIDAZOLAM INJ 2MG/2ML VIAL As Ordered ONE (07:56)
[2024-11-27] MEDS ORDERED: INSULIN LISPRO (NovoLOG) PER UNIT SC PRN (08:00)
[2024-11-27] MEDS: LIDOCAINE 1% SDV 5ML VIAL As Ordered ONE (08:48)
[2024-11-27] MEDS: CEFUROXIME 1MG/0.1ML INTRACAMERAL INJ As Ordered ONE (08:50)
[2024-11-27 09:23] VITALS: BP 154/74; TEMP 97.2; O2SAT 96
== END 2024-11-27 09:40 | disposition home or self-care (01) ==
LOC: M SDC 06:54
PROVIDERS: ATTEND Ophthalmology
DX: E11.36 Type 2 diabetes mellitus with diabetic cataract (principal); H25.11 Age-related nuclear cataract, right eye; I10 Essential (primary) hypertension; E78.00 Pure hypercholesterolemia, unspecified; N40.0 Benign prostatic hyperplasia without lower urinary tract symptoms; Z79.84 Long term (current) use of oral hypoglycemic drugs; Z79.899 Other long term (current) drug therapy; Z79.4 Long term (current) use of insulin; Z88.8 Allergy status to other drugs, medicaments and biological substances; Z91.040 Latex allergy status; Z90.49 Acquired absence of other specified parts of digestive tract
CPT/HCPCS: 66982; J0697; J2250; J3010; V2632

== ENCOUNTER → 2025-08-08 | Outpatient (CLI) | payer MEDICARE, MEDICAID ==
[~2025-08-08] MED LIST changes: -FLOM0.4C39 PO; +TAMS-18 PO
== END ==
LOC: M RAD 08:50
PROVIDERS: ATTEND Family Medicine
DX: F17.210 Nicotine dependence, cigarettes, uncomplicated (principal)